=== PATIENT | male | born 1965 ===

== ENCOUNTER 2017-04-04 15:55 | Emergency (ER) | payer SELFPAY ==
[2017-04-04 16:04] VITALS: O2SAT 97
[2017-04-04] MEDS ORDERED: Tetanus/Diphtheria Toxoids 0.5 ml Syringe IM ONE ×2 (16:17→17:07)
[2017-04-04] MEDS ORDERED: Lidocaine 1% w Epi 1:100,000 Inj INJ STA (16:17)
--- NOTE | 2017-04-04 16:39 | RAD ---
PROCEDURE: Right Hand Radiographs. HISTORY: LACERATION, EVAL FOR FOREIGN BODY COMPARISON: None available. FINDINGS: BONES: No acute displaced fracture. JOINTS: No dislocation. SOFT TISSUES: Marked soft tissue swelling with appearance to suggest laceration along the medial aspect of the hand/wrist. No evidence of radiopaque foreign body. OTHER FINDINGS: None. IMPRESSION: Marked soft tissue swelling with appearance to suggest laceration along the medial aspect of the hand/wrist. No evidence of radiopaque foreign body.
[2017-04-04] MEDS ORDERED: Lidocaine 2% w Epi 1:100,000 Inj IJ ONE (16:43)
[2017-04-04] MEDS ORDERED: Bacitracin 500 Units/gm Oint Foilpak UD ONE (17:06)
[2017-04-04 17:13] VITALS: BP 133/85; PULSE 70; RESP 18; TEMP 97.6
--- NOTE | 2017-04-04 17:13 | C.PDOC ---
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 Injury happened [employer]. Patient is not UTD with tetanus vaccination. He denies sensory changes or difficulty in moving fingers. Time Seen by Provider: 04/04/17 16:07 Chief Complaint (Nursing): Abnormal Skin Integrity History Per: Patient History/Exam Limitations: no limitations Onset/Duration Of Symptoms: Other ([employer]) Current Symptoms Are (Timing): Still Present Location Of Injury: Right: Hand, Posterior: Hand Quality Of Symptoms: Painful Severity: Mild Past Medical History Reviewed: Historical Data, Nursing Documentation, Vital Signs Vital Signs: Last Vital Signs Temp 97.6 F 04/04/17 17:12 Pulse 70 04/04/17 17:12 Resp 18 04/04/17 17:12 BP 133/85 04/04/17 17:12 Pulse Ox 97 04/04/17 17:13 - Medical History PMH: No Chronic Diseases Family History: States: No Known Family Hx - Social History Hx Alcohol Use: No Hx Substance Use: No - Immunization History Hx Tetanus Toxoid Vaccination: No Hx Influenza Vaccination: No Hx Pneumococcal Vaccination: No Review Of Systems Except As Marked, All Systems Reviewed And Found Negative. Constitutional: Negative for: Fever, Chills Cardiovascular: Negative for: Chest Pain Respiratory: Negative for: Shortness of Breath Skin: Positive for: Other (right hand dorsum laceration). Negative for: Rash Neurological: Negative for: Weakness, Numbness Physical Exam - Physical Exam Appears: Well, Non-toxic, No Acute Distress Skin: Other (approx 4cm laceration on lateral dorsum of right hand, no active bleeding, no erythema/discharge) Eye(s): bilateral: Normal Inspection Cardiovascular: Rhythm Regular Respiratory: Normal Breath Sounds, No Rales, No Rhonchi, No Wheezing Extremity: Normal ROM, Capillary Refill (< 2 sec all digits ), No Deformity, No Swelling Extremity: Bilateral: Normal Color And Temperature, Normal ROM Pulses: Left Radial: Normal, Right Radial: Normal Neurological/Psych: Oriented x3, Normal Motor, Normal Sensation (intact at right hand/digits) Gait: Steady ED Course And Treatment O2 Sat by Pulse Oximetry: 97 (RA) Pulse Ox Interpretation: Normal Progress Note: Xray of right hand ordered and reviewed. Patient given IM Tetanus vaccination, PO Keflex, PO Tylenol. Laceration repair done by me, patient tolerated well. Area covered with bacitracin and dressing by me. Patient given Rxs for Keflex, Naprosyn. Patient instructed to return to ER in 5 -7 days for suture removal. He understands he should return to ED if he develops any redness, swelling, pain, discharge etc. Reevaluation Time: 17:20 Reassessment Condition: Improved Laceration - Laceration Repair right dorsum hand laceration Wound Length (In cm): 4cm Description Of Wound: Linear Wound Cleansed With: Sterile Saline Anesthesia: Lidocaine 1%, With Epi (approx 4ml) Wound Examination: Irrigated With Saline, No FB With Wound Exploration Wound Closure: Suture (three ) Suture Technique And Material Used: Interrupted Wound Complexity: Simple (ethilon 3.0) Disposition Counseled Patient/Family Regarding: Studies Performed, Diagnosis, Need For Followup, Rx Given - Disposition Referrals: [facility] [Outside] Disposition: HOME/ ROUTINE Disposition Time: 17:20 Condition: STABLE Additional Instructions: DEVUELVA A ER EN 5-7 MAGAÑA PARA LA REMOCIN DE SUTURAS USE ANTIBITICOS HASTA FINALIZAR USE EL MEDICAMENTO DEL DOLOR KARENA SEA NECESARIO VUELVA A LA KLAUS DE EMERGENCIA SI DESARROLLAS MIRZA, REDNESS, SWELLING, FEVER , ETC Prescriptions: Cephalexin [Keflex] 500 mg PO BID #14 capsule Naproxen [Naprosyn Tab] 375 mg PO BID PRN #20 tab PRN Reason: pain Instructions: Care For Your Stitches (ED), Laceration (ED) Forms: Work Excuse Print Language: EMIRATI - POA Present On Arrival: Falls Or Trauma - Clinical Impression Clinical Impression: Laceration of hand
== END 2017-04-04 17:25 | disposition home or self-care (01) ==
LOC: C.ER 15:55
DX: S61.411A Laceration without foreign body of right hand, initial encounter (principal); W45.8XXA Other foreign body or object entering through skin, initial encounter

== ENCOUNTER 2018-05-24 09:29 | Emergency (ER) | payer OTHER ==
[2018-05-24 09:38] VITALS: BP 146/91; PULSE 63; RESP 18; TEMP 98.8; O2SAT 97
[2018-05-24] MEDS ORDERED: Oxycodone/Acetaminophen 5/325 mg Tab PO STA (10:15)
--- NOTE | 2018-05-24 10:17 | C.PDOC ---
History Of Present Illness 52 y/o male presents to the ED complaining of new onset left lower back and hip pain for 1 week. Pain is described as localized and persistent, associated with weight bearing and changing position to standing. Denies recent trauma or fall. Patient is asymptomatic when sitting. He describes left lower back pain radiating to the left hip and lateral thigh. No associated weakness, numbness, or tingling. Patient reports limited relief with Advil 400 mg. Denies other associated symptoms. Time Seen by Provider: 05/24/18 10:00 Chief Complaint (Nursing): Lower Extremity Problem/Injury History Per: Patient History/Exam Limitations: no limitations Onset/Duration Of Symptoms: Days Current Symptoms Are (Timing): Still Present Previous Symptoms: None Exacerbating Factor(s): Standing Past Medical History Reviewed: Historical Data, Nursing Documentation, Vital Signs Vital Signs: Last Vital Signs Temp 98.8 F 05/24/18 09:36 Pulse 63 05/24/18 09:36 Resp 18 05/24/18 10:29 BP 146/91 H 05/24/18 09:36 Pulse Ox 97 05/24/18 10:19 Surgical History: No Surg Hx Family History: States: No Known Family Hx - Social History Hx Tobacco Use: No Hx Alcohol Use: No Hx Substance Use: No - Immunization History Hx Tetanus Toxoid Vaccination: No Hx Influenza Vaccination: No Hx Pneumococcal Vaccination: No Review Of Systems Except As Marked, All Systems Reviewed And Found Negative. Constitutional: Negative for: Fever, Chills Gastrointestinal: Negative for: Vomiting, Abdominal Pain Genitourinary: Negative for: Dysuria, Frequency, Incontinence Musculoskeletal: Positive for: Back Pain (left low back), Leg Pain (left hip/ lateral thigh) Neurological: Negative for: Weakness, Numbness, Incoordination Physical Exam - Physical Exam Appears: No Acute Distress Skin: Warm, Dry Eye(s): bilateral: Normal Inspection Oral Mucosa: Moist Neck: Normal ROM Chest: Symmetrical Cardiovascular: Rhythm Regular Respiratory: Normal Breath Sounds, No Accessory Muscle Use, Other (NARD) Back: No Vertebral Tenderness, No Decreased ROM (+Active ROM without difficulty) , No Paraspinal Tenderness Extremity: Bilateral: Atraumatic, Normal Color And Temperature, Normal ROM Pulses: Left Dorsalis Pedis: Normal, Right Dorsalis Pedis: Normal Neurological/Psych: Oriented x3, Normal Speech, Normal Motor, Normal Sensation, Other (No focal deficits) Gait: Steady ED Course And Treatment O2 Sat by Pulse Oximetry: 97 (RA) Pulse Ox Interpretation: Normal Medical Decision Making Medical Decision Making: Impression: Sciatica Plan: --Decadron 12 mg PO --Motrin 400 mg PO --Gabapentin 300 mg PO --Percocet 1 tab PO --Zofran 4 mg PO Patient will be discharged home with pain medication and muscle relaxant prescriptions. Advised to follow up with PMD for further evaluation. Disposition Counseled Patient/Family Regarding: Diagnosis, Need For Followup, Rx Given - Disposition Referrals: [facility] [Outside] [facility] [Outside] Disposition: HOME/ ROUTINE Disposition Time: 10:14 Condition: IMPROVED Prescriptions: Acetaminophen [Tylenol Extra Strength] 2 tab PO Q6 #30 tablet Cyclobenzaprine [Flexeril] 10 mg PO TID #15 tab Gabapentin [Neurontin] 300 mg PO TID #30 cap Ibuprofen [Motrin] 600 mg PO Q6 #30 tab Instructions: Sciatica (DC) Forms: [employer] (Macedonian), Work Excuse Print Language: EAST TIMORESE - Clinical Impression Clinical Impression: Lumbar radiculopathy - Scribe Statement The provider has reviewed the documentation as recorded by the Scribe (Deysi Blunt) Provider Attestation: All medical record entries made by the Scribe were at my direction and personally dictated by me. I have reviewed the chart and agree that the record accurately reflects my personal performance of the history, physical exam, medical decision making, and the department course for this patient. I have also personally directed, reviewed, and agree with the discharge instructions and disposition.
[2018-05-24] MEDS ORDERED: Oxycodone/Acetaminophen 5/325 mg Tab ONE (10:25)
== END 2018-05-24 10:31 | disposition home or self-care (01) ==
LOC: C.ER 09:29
DX: M54.16 Radiculopathy, lumbar region (principal)
CPT/HCPCS: 99284; J8540

== ENCOUNTER 2018-05-30 09:39 | Emergency (ER) | payer OTHER ==
[2018-05-30 10:22] VITALS: RESP 18; O2SAT 96
--- NOTE | 2018-05-30 10:42 | C.PDOC ---
History Of Present Illness 52-year-old male presents to the ED for evaluation of left-sided lower back and hip pain radiating down left leg for one week. Patient denies fever, chills, recent trauma/injuries or falls, extremity numbness/weakness. Patient was seen in this ED on 05/24 for similar complaints. He was given Decadron IM during his stay and discharged with prescriptions for Motrin, Flexeril, Neurontin, and Tylenol. Patient has been taking medication without relief. Patient denies fever , chills, abdominal pain, urinary/bowel incontinence, urinary retention, dysuria , hematuria, extremity numbness/weakness. Time Seen by Provider: 05/30/18 10:12 Chief Complaint (Nursing): Lower Extremity Problem/Injury History Per: Patient History/Exam Limitations: no limitations Onset/Duration Of Symptoms: Other (1 week ) Current Symptoms Are (Timing): Still Present Additional History Per: Patient Past Medical History Reviewed: Historical Data, Nursing Documentation, Vital Signs Vital Signs: Last Vital Signs Temp 98.8 F 05/30/18 11:53 Pulse 75 05/30/18 11:53 Resp 18 05/30/18 11:53 BP 133/89 05/30/18 11:53 Pulse Ox 96 05/30/18 21:30 - Medical History PMH: No Chronic Diseases Surgical History: No Surg Hx Family History: States: Unknown Family Hx - Social History Hx Tobacco Use: No Hx Alcohol Use: Yes Hx Substance Use: No - Immunization History Hx Tetanus Toxoid Vaccination: No Hx Influenza Vaccination: No Hx Pneumococcal Vaccination: No Review Of Systems Musculoskeletal: Positive for: Back Pain (left-sided, lower ), Leg Pain (left ) Physical Exam - Physical Exam Appears: Non-toxic, Other (in mild to moderate pain ) Skin: Normal Color, Warm, Dry Head: Atraumatic, Normacephalic Eye(s): bilateral: Normal Inspection Oral Mucosa: Moist Neck: Supple Chest: Symmetrical, No Deformity, No Tenderness Cardiovascular: Rhythm Regular, No Murmur Respiratory: Normal Breath Sounds, No Rales, No Rhonchi, No Wheezing Gastrointestinal/Abdominal: Soft, No Tenderness, No Guarding, No Rebound Back: No Vertebral Tenderness, Paraspinal Tenderness (left-sided, lumbar ) Extremity: Normal ROM, Tenderness (left hip ), Capillary Refill (less than 2 seconds ), No Swelling Neurological/Psych: Oriented x3, Normal Speech, Normal Cognition, Normal Sensation Gait: Steady ED Course And Treatment O2 Sat by Pulse Oximetry: 96 (on RA) Pulse Ox Interpretation: Normal - Other Rad lumbar spine XR X-Ray: Viewed By Me, Read By Radiologist Interpretation: PROCEDURE: Radiographs of the Lumbar Spine. HISTORY: r/o fx. COMPARISON: No prior. FINDINGS: BONES: Normal alignment. No listhesis. No fracture. DISC SPACES: Advanced multilevel thoracolumbar spondylosis spares the mid lumbar spine somewhat. No destructive bony lesion identified. OTHER FINDINGS: None. IMPRESSION: There is multilevel thoracolumbar spondylosis primarily the upper and lower disc interspaces. No fracture or spondylolisthesis identified. Progress Note: LS Spine AP/LAT XR ordered and reviewed. Flexeril PO and Motrin PO given. On re-examination, patient is resting comfortably, showing no signs of distress and reports an improvement in his pain. Patient is stable for discharge with Rx for prednisone and is advised to follow up with his PMD/ clinic within 1-2 days for further evaluation. Disposition Counseled Patient/Family Regarding: Studies Performed, Diagnosis, Need For Followup, Rx Given - Disposition Referrals: [facility] [Outside] Disposition: HOME/ ROUTINE Disposition Time: 11:30 Condition: STABLE Additional Instructions: YOU NEED TO FOLLOW UP WITH MEDICAL CLINIC IN 1-2 DAYS CONTINUE YOUR PAIN MEDICATIONS NEEDED RETURN TO EMERGENCY ROOM IF SYMPTOMS WORSEN NECESITA SEGUIR CON CORONA CLNICA MDICA EN 1-2 MAGAÑA CONTINE NASIM MEDICAMENTOS PARA EL DOLOR SEGN SEA NECESARIO REGRESE AL KLAUS DE EMERGENCIA SI LOS SNTOMAS EMPEORAN Prescriptions: predniSONE [predniSONE Tab] 40 mg PO DAILY #8 tab Instructions: Radiculopathy (DC) Forms: [employer] ([place] Citizen) Print Language: BOLIVIAN - POA Present On Arrival: None - Clinical Impression Clinical Impression: Lumbar radiculopathy - Scribe Statement The provider has reviewed the documentation as recorded by the Scribe (Lorna Denson) Provider Attestation: All medical record entries made by the Scribe were at my direction and personally dictated by me. I have reviewed the chart and agree that the record accurately reflects my personal performance of the history, physical exam, medical decision making, and the department course for this patient. I have also personally directed, reviewed, and agree with the discharge instructions and disposition.
--- NOTE | 2018-05-30 11:19 | RAD ---
Date of service: 05/30/2018 PROCEDURE: Radiographs of the Lumbar Spine. HISTORY: r/o fx COMPARISON: No prior. FINDINGS: BONES: Normal alignment. No listhesis. No fracture. DISC SPACES: Advanced multilevel thoracolumbar spondylosis spares the mid lumbar spine somewhat. No destructive bony lesion identified. OTHER FINDINGS: None. IMPRESSION: There is multilevel thoracolumbar spondylosis primarily the upper and lower disc interspaces. No fracture or spondylolisthesis identified.
[2018-05-30 12:02] VITALS: BP 133/89; PULSE 75; TEMP 98.8
== END 2018-05-30 11:54 | disposition home or self-care (01) ==
LOC: C.ER 09:39
DX: M54.16 Radiculopathy, lumbar region (principal)